=== PATIENT | male | born 1945 | race Caucasian/White ===

== ENCOUNTER 2020-06-04 15:08 | Emergency (ER) | payer OTHER, SELFPAY ==
[2020-06-04 15:15] VITALS: BP 158/73; PULSE 75; RESP 20; TEMP 36.9; O2SAT 99
[2020-06-04 15:17] VITALS: RESP 20
--- NOTE | 2020-06-04 16:20 | ED.GENADUL_ITS ---
Discharge Plan Disposition Patient Disposition: HOME Condition: Stable Discharge Details Chief Complaint: GenMedical Clinical Impression: Encounter for wellness examination in adult [facility] Provider: Jaz Jean Baptiste Discharge Instructions Instructions: Paresthesia (ED) Additional Instructions: Follow up with primary care provider in 3-5 days. Return to ED sooner if any worsening or concerns. Increase oral fluids. Discharge Data Discharge Date/Time-TO BE ENTERED AT DEPARTURE: 06/04/20 18:00 Medical Decision Making 74-year-old male presents to the ER with chief complaint of blacked out mind for the last 3 days. Associated with some buzzing-like sensation to his bilateral lower extremities. Denies any pain, chest pain, shortness of breath, headache, weakness, slurred speech. Denies being forgetful is unable to describe his mind being off for the last few days. He denies any fever chills. No other complaints. He says he takes an antacid for reflux. Denies smoking, drugs and is an occasional drinker. CBC is within normal limits, CMP is largely within normal limits, total bilirubin is 1.1, urine shows 40 ketones no leukocytes urine drug screen is negative. At this time patient's vague symptoms do not warrant further work-up. He is alert and oriented x3 prior to discharge home. Instructed to follow-up with PCP verbalized understanding. Discussed strict return instructions. Differential diagnosis includes but not limited to anxiety, dementia, peripheral vascular disease, HPI General Mode of arrival: ambulatory . Date/Time Provider Initiated Documentation: 06/04/20 15:19 . Limitations to Documentation: no limitations . Information obtained by: patient . HPI Narrative: 74-year-old male presents to the ER with chief complaint of blacked out mind for the last 3 days. Associated with some buzzing-like sensation to his bilateral lower extremities. Denies any pain, chest pain, shortness of breath, headache, weakness, slurred speech. Denies being forgetful is unable to describe his mind being off for the last few days. He denies any fever chills. No other complaints. He says he takes an antacid for reflux. Denies smoking, drugs and is an occasional drinker. Related Data Allergies Allergy/AdvReac Type Severity Reaction Status Date / Time No Known Allergies Allergy Unverified 06/04/20 15:20 General Stated Complaint: GenMedical FRANCESCA: 4 Review of Systems Narrative: Constitutional: Negative for weight loss, alert and oriented, well groomed, normal body habitus, appears comfortable. HEENT: Denies trauma, headaches, blurry vision, nasal discharge, sore throat, trouble swallowing. Chest: Denies chest pain, palpitations, irregular rhythm, hypertension. Respiratory: Denies Shortness of breath, cough, hemoptysis. GI: Denies abdominal pain, nausea, vomiting, diarrhea, constipation. : Denies dysuria, hematuria, flank pain, rectal bleeding. Neuro: Denies dizziness, blurry vision, weakness, syncope, headache or facial numbness. Hematologic: Denies easy bruising, intolerance to heat or cold, hair loss. [facility] Social History Smoking/Tobacco Use Status: Former Tobacco Use Alcohol Intake: never Drug use: Never Substance use type: does not use Do you feel safe at home: Yes Exam Narrative Exam Narrative: Constitutional: Alert and oriented x3. Appears stated age. Normal body habitus. Head: Normocephalic, no trauma. Eyes: Pupils PERRLA, pupils are 2 mm bilaterally, Red reflex noted, EOM's intact. Eyelids symmetrical without lesions, discharge, or swelling. ENT: Bilateral TM's WNL, External ear normal to inspection, no mastoid TTP, swelling, or erythema, Nasal turbinates WNL, no nasal discharge. Normal dentition, Posterior pharynx WNL, no exudate. Chest: RRR, Normal S1, S2, distal pulses intact. Resp: Lungs clear to auscultation bilaterally, no wheezes, rales, or rhonchi. Musculoskeletal: Normal gait, 5/5 strength to all four extremities. Skin: No suspicious rashes or lesions. Capillary refill less than 2 sec. Neurologic: Cranial nerves II-XII intact. Alert and oriented x 3. DTR's intact. Hematologic/Lymphatic: No ecchymosis, no lymphadenopathy. Course Vital Signs Vital signs: Vital Signs Temperature 36.9 C 06/04/20 15:15 Pulse 75 06/04/20 15:15 Respiratory Rate 20 06/04/20 15:15 Blood Pressure 158/73 H 06/04/20 15:15 Pulse Oximetry 99 06/04/20 15:15 Temperature 36.9 C 06/04/20 15:15 Temperature Source Tympanic 06/04/20 15:15 Pulse 75 06/04/20 15:15 Respiratory Rate 20 06/04/20 15:17 Respiratory Effort 06/04/20 15:17 Respiratory Depth Normal 06/04/20 15:17 Respiratory Pattern Normal 06/04/20 15:17 Blood Pressure 158/73 H 06/04/20 15:15 Pulse Oximetry 99 06/04/20 15:15 Oxygen Delivery Method Room Air 06/04/20 15:15 Oxygen Flow Rate 0 06/04/20 15:15 Pain Level 0 06/04/20 15:15
[2020-06-04 16:43] LABS: Abs Immature Grans 0.03 10^3/uL (0.0-0.06); Absolute Basophil Count 0.03 10^3/uL (0.0-0.2); Absolute Eosinophil Count 0.06 10^3/uL (0.0-0.7); Absolute Monocyte Count 0.69 10^3/uL (0.1-0.8); Absolute Neutrophil Count 6.06 10^3/uL (1.2-6.7); Basophils % 0.3; Eosinophils % 0.7; HCT 40.8 % (40.0-50.0); HGB 13.5 g/dL (13.5-17.5); Immature Grans % 0.3; Lymphocytes % 21.7; MCH 28.4 pg (27.0-33.0); MCHC 33.1 % (32.0-36.0); MCV 85.9 fL (80-95); Monocytes % 7.9; Neutrophils % 69.1; Nucleated RBC 0 %; Platelet Count 248 10^3/uL (130-400); RBC 4.75 10^6/uL (4.36-5.78); RDW 13.3 % (11.8-14.1); RDW-SD 42.2 fL; WBC 8.77 10^3/uL (4.4-10.8)
[2020-06-04 17:00] LABS: ALT 18 U/L (16-63); AST 18 U/L (15-37); Albumin 3.8 g/dL (3.4-5.0); Alkaline Phosphatase 54 U/L (46-116); Anion Gap 8.7 mmol/L (3-11); BUN 15 mg/dL (7-18); Bilirubin, Total 1.1 mg/dL (0.2-1.0); CO2 26.3 mmol/L (21.0-32.0); CREATININE 1.19 mg/dL (0.70-1.30); Chloride 105 mmol/L (98-107); Glucose 101 mg/dL (74-106); Magnesium 1.8 mg/dL (1.8-2.4); Potassium 3.8 mmol/L (3.5-5.1); Sodium 140 mmol/L (136-145); Total Protein 6.8 g/dL (6.4-8.2)
[2020-06-04 17:02] LABS: Bilirubin Negative (Negative); Blood Negative (Negative); Clarity Clear (Clear); Glucose Negative (Negative); Ketones 40 mg/dL (Negative); Leukocyte Esterase Negative (Negative); Nitrite Negative (Negative); Specific Gravity >= 1.030 (1.005-1.025); Urobilinogen 0.2 EU/dL (Up TO 0.2)
[2020-06-04 17:27] LABS: *AMPHETAMINES SCREEN URINE Negative (Negative); *BARBITURATES SCREEN URINE Negative (Negative); *BENZODIAZEPINES SCREEN URINE Negative (Negative); Cannabinoids THC Negative (Negative); Cocaine Screen,Urine Negative (Negative); METHADONE URINE SCREEN Negative (Negative); OPIATES URINE SCREEN Negative (Negative)
[2020-06-04 17:30] LABS: Tricyclic Antidepressants Negative (Negative)
[2020-06-04 17:50] VITALS: BP 141/77; RESP 12; O2SAT 99
== END 2020-06-04 18:00 | disposition home or self-care (01) ==
PROVIDERS: Emergency Provider Registered Nurse Emergency
DX: R20.2 Paresthesia of skin (principal); R41.82 Altered mental status, unspecified
CPT/HCPCS: 36415; 80053; 80307; 99283; 81003; 83735; 85025